=== PATIENT | female | born 1995 | race African-American/Black ===

== ENCOUNTER → 2017-12-10 | Outpatient (CLI) | payer OTHER ==
[2017-12-10 17:37] LABS: BASO % 0.2 % (0.0-1.0); EOS % 0.2 % (0.0-3.0); HEMATOCRIT 32.2 % (36.0-47.0); HEMOGLOBIN 10.5 g/dl (12.0-15.5); IMMATURE GRANULOCYTE % 0.5 % (0-3.0); LYMPH % 15.4 % (24.0-44.0); MEAN CORPUSCULAR HEMOGLOBIN 27.4 pg (27.0-33.0); MEAN CORPUSCULAR HGB CONC 32.6 g/dl (32.0-36.5); MEAN CORPUSCULAR VOLUME 84.1 fl (80.0-96.0); MONO # 0.6 10^3/uL (0.0-0.8); MONO % 9.4 % (0.0-5.0); NEUTROPHILS # 4.9 10^3/uL (1.8-7.7); NEUTROPHILS % 74.3 % (36.0-66.0); PLATELET COUNT, AUTOMATED 217 10^3/uL (150-450); RED BLOOD COUNT 3.83 10^6/uL (4.00-5.40); WHITE BLOOD COUNT 6.6 10^3/uL (4.0-10.0)
[2017-12-10 17:46] LABS: GLUCOSE CHALLENGE TEST 1 HOUR 93 MG/DL (LESS THAN 140)
[2017-12-10 19:10] LABS: CHLAMYDIA DNA AMPLIFICATION NEGATIVE (NEGATIVE); GC DNA AMPLIFICATION NEGATIVE (NEGATIVE)
[2017-12-11 11:46] LABS: HEPATITIS C VIRUS ABY INDEX 0.2 INDEX (<0.8)
== END ==
LOC: M SMT 13:09
DX: Z36.89 Encounter for other specified antenatal screening (principal)
CPT/HCPCS: 82950

== ENCOUNTER → 2017-12-27 | Outpatient (REF) | payer OTHER | LOC: M LAB REF 16:55 | DX: Z34.83 Encounter for supervision of other normal pregnancy, third trimester (principal) ==

== ENCOUNTER → 2018-01-23 | Outpatient (REF) | payer OTHER | LOC: M LAB REF 17:04 | DX: Z34.83 Encounter for supervision of other normal pregnancy, third trimester (principal) ==

== ENCOUNTER → 2018-01-30 | Outpatient (REF) | payer OTHER | LOC: M LAB REF 17:21 | DX: Z34.83 Encounter for supervision of other normal pregnancy, third trimester (principal); Z36.85 Encounter for antenatal screening for Streptococcus B | CPT/HCPCS: 87186 ==

== ENCOUNTER → 2018-02-07 | Outpatient (REF) | payer OTHER | LOC: M LAB REF 17:12 | DX: Z34.83 Encounter for supervision of other normal pregnancy, third trimester (principal); R31.9 Hematuria, unspecified | CPT/HCPCS: 87086 ==

== ENCOUNTER 2018-02-11 04:27 | Inpatient (IN) | payer OTHER ==
[2018-02-11] MEDS ORDERED: LR 1,000 ML IV (05:21)
[2018-02-11] MEDS ORDERED: PENICILLIN G POTASSIUM IV 5 MU in D5W MINI-BAG PLUS 100 ML IV (05:21)
[2018-02-11] MEDS ORDERED: MEASLES,MUMPS,RUBELLA VACCINE INJ (MMR-II) (90707) SC (06:15)
[2018-02-11] MEDS ORDERED: DOCUSATE SODIUM 100 MG CAP PO (06:15)
[2018-02-11] MEDS ORDERED: ACETAMINOPHEN 500 MG TAB PO (06:15)
[2018-02-11] MEDS ORDERED: DIBUCAINE 1% OINTMENT 30GM TOP (06:15)
[2018-02-11] MEDS ORDERED: MOM 30ML SUSPENSION UDC PO (06:15)
[2018-02-11] MEDS ORDERED: ANUSOL HC CREAM 30GM TOP (06:15)
[2018-02-11] MEDS ORDERED: RHOGAM 300 MCG (1500 IU) INJ (J2790) IM (06:15)
[2018-02-11] MEDS ORDERED: OXYTOCIN 30 UNITS IN 0.9% NaCl 500ML IV BAG (J2590) As Ordered (06:16)
[2018-02-11] MEDS: OXYTOCIN DRIP 30 UNITS in APPROPRIATE DILUENT 1 EA IV (07:11)
[2018-02-11] MEDS: OXYTOCIN INJ 10 UNITS/ML VIAL (J2590) IM (07:11)
[2018-02-11] MEDS: METHYLERGONOVINE MALEATE 0.2 MG TAB PO (07:11)
[2018-02-11 07:12] LABS: HEMATOCRIT 33.4 % (36.0-47.0); HEMOGLOBIN 10.5 g/dl (12.0-15.5); MEAN CORPUSCULAR HGB CONC 31.4 g/dl (32.0-36.5); MEAN CORPUSCULAR VOLUME 79.5 fl (80.0-96.0); PLATELET COUNT, AUTOMATED 196 10^3/uL (150-450); WHITE BLOOD COUNT 8.6 10^3/uL (4.0-10.0)
[2018-02-11] MEDS: miSOPROStol 200 MCG TAB (S0191) PR (07:12)
[2018-02-11] MEDS: LACTATED RINGER'S 1000 ML IV (07:12)
[2018-02-11] MEDS: PRENATAL VITAMINS CHEWABLE TABLET PO (08:49)
[2018-02-11] MEDS ORDERED: PENICILLIN G POTASSIUM IV 2.5 MU in APPROPRIATE DILUENT 1 EA IV (09:30)
[2018-02-11 10:45] LABS: ALT/SGPT 13 U/L (12-78); AST/SGOT 22 U/L (7-37); BILIRUBIN,TOTAL 0.3 MG/DL (0.2-1.0); CREATININE FOR GFR 0.68 MG/DL (0.55-1.30); GLOMERULAR FILTRATION RATE > 60.0 (>60); LDH LACTATE DEHYDROGENASE 241 U/L (84-246); URIC ACID 4.6 MG/DL (2.6-6.0)
[2018-02-11] MEDS: IBUPROFEN 800 MG TAB PO (13:17)
[2018-02-12] MEDS: PRENATAL VITAMINS CHEWABLE TABLET PO (08:13)
[2018-02-12] MEDS: IBUPROFEN 800 MG TAB PO (19:21)
[2018-02-13] MEDS: PRENATAL VITAMINS CHEWABLE TABLET PO (08:34)
== END 2018-02-13 09:40 | disposition home or self-care (01) | DRG 775 ==
LOC: M LDO 04:27 → M LDI 05:27 → M OBS 08:34
PROC: 10E0XZZ Delivery of Products of Conception, External Approach (ICD-10-PCS; principal; 2018-02-11)
DX: O99.824 Streptococcus B carrier state complicating childbirth (principal); Z37.0 Single live birth; Z3A.38 38 weeks gestation of pregnancy; O64.5XX0 Obstructed labor due to compound presentation, not applicable or unspecified

== ENCOUNTER → 2018-09-26 | Outpatient (REF) | payer OTHER ==
[~2018-09-26] MED LIST: IBUP-1114 PO; MAPA500T2 PO; PRENTAB9 PO
== END ==
LOC: M LAB REF 18:07
PROVIDERS: ATTEND Advanced Practice Midwife
DX: Z12.4 Encounter for screening for malignant neoplasm of cervix (principal)

== ENCOUNTER 2020-01-25 14:25 | Emergency (ER) | payer OTHER ==
[~2020-01-25] VITALS: Ht 165.1 cm; Wt 88.1 kg
[2020-01-25 16:17] LABS: HEMATOCRIT 42.6 % (36.0-47.0); HEMOGLOBIN 14.7 g/dl (12.0-15.5); MEAN CORPUSCULAR HEMOGLOBIN 30.9 pg (27.0-33.0); MEAN CORPUSCULAR HGB CONC 34.5 g/dl (32.0-36.5); MEAN CORPUSCULAR VOLUME 89.7 fl (80.0-96.0); PLATELET COUNT, AUTOMATED 280 10^3/uL (150-450); RED BLOOD COUNT 4.75 10^6/uL (4.00-5.40); WHITE BLOOD COUNT 5.6 10^3/uL (4.0-10.0)
[2020-01-25 16:38] LABS: APPEARANCE, URINE CLOUDY (CLEAR); BACTERIA, URINE AUTO 1+ (NEGATIVE); BILIRUBIN, URINE AUTO NEGATIVE (NEGATIVE); BLOOD, URINE BLOOD NEGATIVE (NEGATIVE); COLOR, URINE AMBER (YELLOW); GLUCOSE, URINE (UA) AUTO NEGATIVE (NEGATIVE); KETONE, URINE AUTO NEGATIVE (NEGATIVE); LEUKOCYTE ESTERASE, URINE AUTO 1+ (NEGATIVE); MUCUS, URINE SMALL (NEGATIVE); NITRITE, URINE AUTO NEGATIVE (NEGATIVE); PROTEIN, URINE AUTO 1+ mg/dL (NEGATIVE); RBC, URINE AUTO 2 /HPF (0-3); SPECIFIC GRAVITY URINE AUTO 1.028 (1.002-1.035); SQUAMOUS EPITHELIAL CELL UR AU 16 /HPF (0-6); WBC, URINE AUTO 4 /HPF (0-3)
[2020-01-25 16:51] LABS: BLOOD UREA NITROGEN 6 MG/DL (7-18); CALCIUM LEVEL 9.4 MG/DL (8.5-10.1); CARBON DIOXIDE LEVEL 29 MEQ/L (21-32); CHLORIDE LEVEL 104 MEQ/L (98-107); CREATININE FOR GFR 0.71 MG/DL (0.55-1.30); GLOMERULAR FILTRATION RATE > 60.0 (>60); GLUCOSE, FASTING 79 MG/DL (70-100); POTASSIUM SERUM 3.9 MEQ/L (3.5-5.1); SODIUM LEVEL 137 MEQ/L (136-145)
[2020-01-25] MEDS ORDERED: REGL10TA6 PO (17:14)
[2020-01-25] MEDS ORDERED: METOCLOPRAMIDE 10 MG TAB PO ONE (17:15)
[2020-01-25 17:23] VITALS: BP 131/69
[2020-01-27] MEDS ORDERED: MACR100C43 PO (09:23)
== END 2020-01-25 17:24 | disposition home or self-care (01) ==
LOC: M ED 14:25
DX: O21.0 Mild hyperemesis gravidarum (principal); Z3A.00 Weeks of gestation of pregnancy not specified